=== PATIENT | male | born 1945 | race Caucasian/White ===

== ENCOUNTER 2017-02-19 09:29 | Inpatient (IN) | payer MEDICAID, MEDICARE ==
[~2017-02-19] VITALS: Ht 182.9 cm; Wt 74.3 kg
[2017-02-19] MEDS ORDERED: METO25XL PO (09:39)
[2017-02-19] MEDS ORDERED: HYDR-4061 PO (09:39)
[2017-02-19] MEDS ORDERED: HYDR25TA84 PO (09:39)
[2017-02-19] MEDS ORDERED: ASPI81 PO (09:39)
[2017-02-19] MEDS ORDERED: FURO40I PO (09:39)
[2017-02-19] MEDS ORDERED: GLIP10 PO (09:39)
[2017-02-19 09:52] LABS: GLUCOSE,POINT OF CARE 169 MG/DL (70-110)
[2017-02-19] MEDS ORDERED: ALBUTEROL SULFATE 2.5 MG/0.5 ML NEB SOLUTION NEB ONE (10:45)
[2017-02-19] MEDS ORDERED: IPRATROPIUM BROMIDE 0.5 MG/2.5 ML NEB SOLUTION NEB ONE (10:45)
[2017-02-19] MEDS ORDERED: AZITHROMYCIN 500 MG/NS 250 ML IV ONE (10:45)
[2017-02-19] MEDS ORDERED: CefTRIAXone 1 GM/DEXTROSE 50 ML IV ONE (10:45)
[2017-02-19 11:01] LABS: BASOPHILS % (AUTO) 0.4 % (0.0-2.0); EOSINOPHILS % (AUTO) 2.4 % (1.0-6.0); HEMATOCRIT 41.4 % (41-53); HEMOGLOBIN 13.9 g/dL (13.5-17.5); LYMPHOCYTES # (AUTO) 0.5 K/uL (1.0-4.8); LYMPHOCYTES % (AUTO) 15.3 % (22.0-44.0); MEAN CORPUSCULAR HEMOGLOBIN 28.4 pg (26.0-34.0); MEAN CORPUSCULAR HGB CONC 33.5 G/dL (31.0-37.0); MEAN CORPUSCULAR VOLUME 85 fL (80-100); MONOCYTES # (AUTO) 0.3 K/uL (0.1-1.0); MONOCYTES % (AUTO) 7.8 % (2.0-9.0); NEUTROPHILS # (AUTO) 2.5 K/uL (1.8-7.7); NEUTROPHILS % (AUTO) 74.1 % (40.0-70.0); PLATELET COUNT (AUTO) 210 K/uL (150-450); RED BLOOD CELL COUNT(AUTO) 4.89 MIL/uL (4.50-5.90); RED CELL DISTRIBUTION WIDTH 14.4 % (11.5-14.5); WHITE BLOOD COUNT (AUTO) 3.4 K/uL (4.5-11.0)
[2017-02-19 11:12] LABS: PROTHROMBIN TIME 10.5 SEC (9.4-11.6)
[2017-02-19 11:14] LABS: ANION GAP 8 mmol/L (8-16); CALCIUM, TOTAL 9.3 mg/dL (8.8-10.5); CARBON DIOXIDE 31 mmol/L (22-29); CHLORIDE 99 mmol/L (98-107); CREATININE 1.79 mg/dL (0.60-1.30); GLOMERULAR FILTR. RATE CALC 38 mL/min (>60); POTASSIUM 4.3 mmol/L (3.5-5.1); SODIUM SERUM 138 mmol/L (136-145); UREA NITROGEN, BLOOD 29 mg/dL (7-18)
[2017-02-19 11:19] LABS: ALANINE AMINOTRANSFERASE 18 U/L (12-78); ALBUMIN 3.4 g/dL (3.4-5.0); ASPARTATE AMINOTRANSFERASE 27 U/L (15-37); BILIRUBIN,TOTAL 0.5 mg/dL (0.1-1.0); CREATINE KINASE, TOTAL 69 U/L (39-308)
[2017-02-19 11:31] LABS: B-TYPE NATRIURETIC PEPTIDE 2730 pg/mL (0-100)
[2017-02-19] MEDS ORDERED: NITROGLYCERIN 2% (1 GM=INCH) PACKET TP ONE (11:45)
[2017-02-19] MEDS ORDERED: ASPIRIN 325 MG EC TABLET PO ONE (11:45)
[2017-02-19] MEDS ORDERED: FUROSEMIDE 20 MG/2 ML VIAL IVP ONE (11:45)
[2017-02-19] MEDS ORDERED: ACETAMINOPHEN 325 MG TABLET PO PRN ×2 (13:15→20:15)
[2017-02-19] MEDS ORDERED: 0.9% SODIUM CHLORIDE 10 ML SYRINGE IVP PRN (13:15)
[2017-02-19 14:08] LABS: APPEARANCE,URINE CLEAR (CLEAR); GLUCOSE, URINE (UA) NEGATIVE (NEGATIVE); KETONES,URINE NEGATIVE (NEGATIVE); LEUKOCYTE ESTERASE ,URINE NEGATIVE (NEGATIVE); OCCULT BLOOD,URINE NEGATIVE (NEGATIVE); PH,URINE 6.5 (5.0-8.0); PROTEIN,URINE POS 1+ (NEGATIVE)
[2017-02-19 14:12] LABS: ADD UA MICROSCOPIC NO
[2017-02-19 16:06] VITALS: BP 143/77
[2017-02-19] MEDS ORDERED: PNEUMOCOCCAL VACCINE POLYVALENT 0.5 ML VIAL [PPSV23] IM ONE (17:15)
[2017-02-19] MEDS ORDERED: INFLUENZA VIRUS VACCINE QVS 2017-18 (3YR+)/PF 60 MCG/0.5 ML SYRINGE IM ONE (17:15)
[2017-02-19 19:47] LABS: GLUCOSE,POINT OF CARE 222 MG/DL (70-110)
[2017-02-19 19:55] VITALS: BP 152/87
[2017-02-19] MEDS ORDERED: MAGNESIUM HYDROXIDE SUSPENSION 30 ML UDCUP PO PRN (20:15)
[2017-02-19] MEDS ORDERED: ZOLPIDEM TARTRATE 5 MG TABLET PO PRN (20:15)
[2017-02-19] MEDS ORDERED: BISACODYL 10 MG RECTAL RECTAL SUPPOSITORY PR PRN (20:15)
[2017-02-19] MEDS ORDERED: ONDANSETRON HCL 4 MG/2 ML VIAL IVP PRN (20:15)
[2017-02-19] MEDS: DOCUSATE SODIUM 100 MG CAPSULE PO SCH (20:56)
[2017-02-19] MEDS: METOPROLOL SUCCINATE 25 MG ER TABLET PO SCH (20:56)
[2017-02-19] MEDS: INSULIN ASPART 100 UNITS/ML SQ PRN (20:59)
[2017-02-19] MEDS: HydrALAZINE HCL 25 MG TABLET PO SCH (22:14)
[2017-02-19] MEDS: HEPARIN SODIUM,PORCINE 5,000 UNITS/ML VIAL SQ SCH (23:30)
[2017-02-19 23:38] VITALS: BP 136/84
[2017-02-20 04:46] VITALS: BP 124/60
[2017-02-20] MEDS: GlipiZIDE 10 MG TABLET PO SCH ×2 (06:13→17:50)
[2017-02-20 06:41] LABS: BASOPHILS % (AUTO) 0.3 % (0.0-2.0); HEMATOCRIT 34.7 % (41-53); HEMOGLOBIN 11.7 g/dL (13.5-17.5); LYMPHOCYTES # (AUTO) 0.6 K/uL (1.0-4.8); LYMPHOCYTES % (AUTO) 7.8 % (22.0-44.0); MEAN CORPUSCULAR HEMOGLOBIN 28.6 pg (26.0-34.0); MEAN CORPUSCULAR HGB CONC 33.6 G/dL (31.0-37.0); MEAN CORPUSCULAR VOLUME 85 fL (80-100); MONOCYTES # (AUTO) 0.5 K/uL (0.1-1.0); MONOCYTES % (AUTO) 6.4 % (2.0-9.0); NEUTROPHILS # (AUTO) 6.1 K/uL (1.8-7.7); NEUTROPHILS % (AUTO) 84.5 % (40.0-70.0); PLATELET COUNT (AUTO) 178 K/uL (150-450); RED BLOOD CELL COUNT(AUTO) 4.09 MIL/uL (4.50-5.90); RED CELL DISTRIBUTION WIDTH 14.1 % (11.5-14.5); WHITE BLOOD COUNT (AUTO) 7.2 K/uL (4.5-11.0)
[2017-02-20 07:42] LABS: ALANINE AMINOTRANSFERASE 13 U/L (12-78); ALBUMIN 2.7 g/dL (3.4-5.0); ANION GAP 8 mmol/L (8-16); ASPARTATE AMINOTRANSFERASE 21 U/L (15-37); BILIRUBIN,TOTAL 0.5 mg/dL (0.1-1.0); CALCIUM, TOTAL 8.5 mg/dL (8.8-10.5); CARBON DIOXIDE 29 mmol/L (22-29); CHLORIDE 102 mmol/L (98-107); CREATINE KINASE, TOTAL 51 U/L (39-308); GLOMERULAR FILTR. RATE CALC 40 mL/min (>60); POTASSIUM 4.4 mmol/L (3.5-5.1); SODIUM SERUM 139 mmol/L (136-145); UREA NITROGEN, BLOOD 32 mg/dL (7-18)
[2017-02-20 07:52] VITALS: BP 133/66
[2017-02-20] MEDS: ASPIRIN 81 MG CHEWABLE TABLET PO SCH (08:45)
[2017-02-20] MEDS: DOCUSATE SODIUM 100 MG CAPSULE PO SCH ×2 (08:45→20:27)
[2017-02-20] MEDS: HEPARIN SODIUM,PORCINE 5,000 UNITS/ML VIAL SQ SCH ×3 (08:45→23:35)
[2017-02-20] MEDS: FUROSEMIDE 40 MG/4 ML VIAL IVP SCH (08:45)
[2017-02-20] MEDS: PANTOPRAZOLE SODIUM 40 MG/VIAL IVP SCH (08:45)
[2017-02-20] MEDS: HydrALAZINE HCL 25 MG TABLET PO SCH ×2 (08:45→20:27)
[2017-02-20] MEDS: METOPROLOL SUCCINATE 25 MG ER TABLET PO SCH ×2 (08:46→20:27)
[2017-02-20] MEDS ORDERED: SODIUM CHLORIDE 0.9% 50 ML ONE (09:57)
[2017-02-20 10:07] LABS: GLUCOSE,POINT OF CARE 121 MG/DL (70-110)
[2017-02-20] MEDS: CefTRIAXone 1 GM/DEXTROSE 50 ML IV SCH (10:12)
[2017-02-20] MEDS: AZITHROMYCIN 500 MG/NS 250 ML IV SCH (11:11)
[2017-02-20 11:52] VITALS: BP 112/57
[2017-02-20] MEDS: INSULIN ASPART 100 UNITS/ML SQ PRN ×3 (12:14→20:30)
[2017-02-20 15:43] VITALS: BP 129/64
[2017-02-20 17:17] LABS: GLUCOSE,POINT OF CARE 89 MG/DL (70-110)
[2017-02-20 19:53] VITALS: BP 122/62
[2017-02-20 19:57] LABS: GLUCOSE,POINT OF CARE 202 MG/DL (70-110)
[2017-02-20 19:57] LABS: GLUCOSE COMMENT 1 Received Meds; GLUCOSE,POINT OF CARE 220 MG/DL (70-110)
[2017-02-20 23:11] VITALS: BP 122/63
[2017-02-21 04:32] VITALS: BP 138/68
[2017-02-21] MEDS: DEXTROSE 50%-WATER 25 GM/50 ML SYRINGE IVP PRN (06:27)
[2017-02-21] MEDS: GlipiZIDE 10 MG TABLET PO SCH (06:30)
[2017-02-21 07:11] VITALS: BP 121/59
[2017-02-21 07:23] LABS: GLUCOSE COMMENT 1 Received Meds; GLUCOSE,POINT OF CARE 214 MG/DL (70-110)
[2017-02-21 07:23] LABS: GLUCOSE COMMENT 1 Received Meds; GLUCOSE,POINT OF CARE 195 MG/DL (70-110)
[2017-02-21 07:23] LABS: GLUCOSE COMMENT 1 Doctor Notified; GLUCOSE COMMENT 2 Received Meds; GLUCOSE,POINT OF CARE 45 MG/DL (70-110)
[2017-02-21] MEDS: FUROSEMIDE 40 MG/4 ML VIAL IVP SCH (08:37)
[2017-02-21] MEDS: PANTOPRAZOLE SODIUM 40 MG/VIAL IVP SCH (08:37)
[2017-02-21] MEDS: HEPARIN SODIUM,PORCINE 5,000 UNITS/ML VIAL SQ SCH ×3 (08:37→23:39)
[2017-02-21] MEDS: METOPROLOL SUCCINATE 25 MG ER TABLET PO SCH ×2 (08:38→20:41)
[2017-02-21] MEDS: HydrALAZINE HCL 25 MG TABLET PO SCH ×2 (08:38→21:00)
[2017-02-21] MEDS: MULTIVITAMINS WITH MINERALS, THERAPEUTIC TABLET PO SCH (08:38)
[2017-02-21] MEDS: DOCUSATE SODIUM 100 MG CAPSULE PO SCH ×2 (08:38→20:41)
[2017-02-21] MEDS: ASPIRIN 81 MG CHEWABLE TABLET PO SCH (08:38)
[2017-02-21] MEDS: CefTRIAXone 1 GM/DEXTROSE 50 ML IV SCH (11:31)
[2017-02-21] MEDS ORDERED: SODIUM CHLORIDE 0.9% 50 ML ONE (11:41)
[2017-02-21] MEDS: INSULIN ASPART 100 UNITS/ML SQ PRN (11:44)
[2017-02-21 11:51] VITALS: BP 120/59
[2017-02-21] MEDS: AZITHROMYCIN 500 MG/NS 250 ML IV SCH (12:40)
[2017-02-21 15:52] VITALS: BP 126/59
[2017-02-21 16:17] LABS: GLUCOSE COMMENT 1 Received Meds; GLUCOSE,POINT OF CARE 146 MG/DL (70-110)
[2017-02-21] MEDS: FUROSEMIDE 20 MG/2 ML VIAL IVP SCH ×2 (16:41→23:39)
[2017-02-21] MEDS: GlipiZIDE 5 MG TABLET PO SCH (17:51)
[2017-02-21 19:07] VITALS: BP 111/56
[2017-02-21 22:17] LABS: GLUCOSE COMMENT 1 Received Meds; GLUCOSE,POINT OF CARE 155 MG/DL (70-110)
[2017-02-21 22:17] LABS: GLUCOSE,POINT OF CARE 110 MG/DL (70-110)
[2017-02-21 23:37] VITALS: BP 135/63
[2017-02-22 04:06] VITALS: BP 129/64
[2017-02-22] MEDS: GlipiZIDE 5 MG TABLET PO SCH ×2 (06:30→18:03)
[2017-02-22 06:48] LABS: GLUCOSE,POINT OF CARE 83 MG/DL (70-110)
[2017-02-22 07:06] VITALS: BP 143/64
[2017-02-22] MEDS: HEPARIN SODIUM,PORCINE 5,000 UNITS/ML VIAL SQ SCH ×3 (08:00→16:00)
[2017-02-22] MEDS: PANTOPRAZOLE SODIUM 40 MG/VIAL IVP SCH (08:12)
[2017-02-22] MEDS: FUROSEMIDE 20 MG/2 ML VIAL IVP SCH (08:12)
[2017-02-22] MEDS: METOPROLOL SUCCINATE 25 MG ER TABLET PO SCH ×2 (08:12→20:13)
[2017-02-22] MEDS: HydrALAZINE HCL 25 MG TABLET PO SCH ×2 (08:12→20:13)
[2017-02-22 08:16] LABS: BASOPHILS % (AUTO) 0.1 % (0.0-2.0); EOSINOPHILS % (AUTO) 3.5 % (1.0-6.0); HEMOGLOBIN 11.1 g/dL (13.5-17.5); LYMPHOCYTES # (AUTO) 0.4 K/uL (1.0-4.8); LYMPHOCYTES % (AUTO) 10.3 % (22.0-44.0); MEAN CORPUSCULAR HEMOGLOBIN 28.7 pg (26.0-34.0); MEAN CORPUSCULAR HGB CONC 33.7 G/dL (31.0-37.0); MEAN CORPUSCULAR VOLUME 85 fL (80-100); MONOCYTES # (AUTO) 0.4 K/uL (0.1-1.0); MONOCYTES % (AUTO) 8.2 % (2.0-9.0); NEUTROPHILS # (AUTO) 3.3 K/uL (1.8-7.7); NEUTROPHILS % (AUTO) 77.9 % (40.0-70.0); PLATELET COUNT (AUTO) 179 K/uL (150-450); RED BLOOD CELL COUNT(AUTO) 3.87 MIL/uL (4.50-5.90); RED CELL DISTRIBUTION WIDTH 14.5 % (11.5-14.5); WHITE BLOOD COUNT (AUTO) 4.3 K/uL (4.5-11.0)
[2017-02-22] MEDS: MULTIVITAMINS WITH MINERALS, THERAPEUTIC TABLET PO SCH (08:31)
[2017-02-22] MEDS: ASPIRIN 81 MG CHEWABLE TABLET PO SCH (08:31)
[2017-02-22] MEDS: DOCUSATE SODIUM 100 MG CAPSULE PO SCH ×2 (08:31→20:13)
[2017-02-22 08:42] LABS: CALCIUM, TOTAL 8.5 mg/dL (8.8-10.5); CREATININE 2.06 mg/dL (0.60-1.30); POTASSIUM 4.5 mmol/L (3.5-5.1)
[2017-02-22 10:44] VITALS: BP 117/57
[2017-02-22] MEDS: CefTRIAXone 1 GM/DEXTROSE 50 ML IV SCH (10:55)
[2017-02-22] MEDS: AZITHROMYCIN 500 MG/NS 250 ML IV SCH (10:55)
[2017-02-22] MEDS ORDERED: ACETYLCYSTEINE 10% 100 MG/ML 30 ML ORAL SOLUTION PO ONE (11:00)
[2017-02-22] MEDS ORDERED: SODIUM CHLORIDE 0.9% 1,000 ML IV ONE (11:00)
[2017-02-22 12:17] LABS: GLUCOSE COMMENT 1 Received Meds; GLUCOSE,POINT OF CARE 221 MG/DL (70-110)
[2017-02-22 14:30] LABS: APPEARANCE,URINE CLEAR (CLEAR); GLUCOSE, URINE (UA) NEGATIVE (NEGATIVE); KETONES,URINE NEGATIVE (NEGATIVE); LEUKOCYTE ESTERASE ,URINE NEGATIVE (NEGATIVE); OCCULT BLOOD,URINE NEGATIVE (NEGATIVE); PH,URINE 5.5 (5.0-8.0); PROTEIN,URINE NEGATIVE (NEGATIVE)
[2017-02-22 14:36] LABS: ADD UA MICROSCOPIC NO
[2017-02-22 14:53] VITALS: BP 132/66
[2017-02-22] MEDS: INSULIN ASPART 100 UNITS/ML SQ PRN ×2 (18:06→20:14)
[2017-02-22 19:12] VITALS: BP 142/67
[2017-02-22 19:57] LABS: GLUCOSE COMMENT 1 Received Meds; GLUCOSE,POINT OF CARE 178 MG/DL (70-110)
[2017-02-22 23:59] VITALS: BP 130/65
[2017-02-23] VITALS (15 sets, daily range): BP systolic 111–167; BP diastolic 48–76
[2017-02-23 00:57] LABS: GLUCOSE COMMENT 1 Received Meds; GLUCOSE,POINT OF CARE 216 MG/DL (70-110)
[2017-02-23] MEDS: INSULIN ASPART 100 UNITS/ML SQ PRN ×4 (05:53→20:53)
[2017-02-23] MEDS: GlipiZIDE 5 MG TABLET PO SCH ×2 (05:56→17:35)
[2017-02-23] MEDS: HEPARIN SODIUM,PORCINE 5,000 UNITS/ML VIAL SQ SCH ×4 (07:40→23:58)
[2017-02-23] MEDS: METOPROLOL SUCCINATE 25 MG ER TABLET PO SCH ×2 (07:50→20:49)
[2017-02-23] MEDS: ASPIRIN 81 MG CHEWABLE TABLET PO SCH (07:50)
[2017-02-23] MEDS: HydrALAZINE HCL 25 MG TABLET PO SCH ×2 (07:50→20:49)
[2017-02-23] MEDS: PANTOPRAZOLE SODIUM 40 MG/VIAL IVP SCH (07:51)
[2017-02-23] MEDS: DOCUSATE SODIUM 100 MG CAPSULE PO SCH ×2 (07:56→20:49)
[2017-02-23] MEDS: MULTIVITAMINS WITH MINERALS, THERAPEUTIC TABLET PO SCH (07:56)
[2017-02-23 08:30] LABS: CALCIUM, TOTAL 8.4 mg/dL (8.8-10.5); CREATININE 1.98 mg/dL (0.60-1.30); POTASSIUM 4.9 mmol/L (3.5-5.1)
[2017-02-23] MEDS: CefTRIAXone 1 GM/DEXTROSE 50 ML IV SCH (10:14)
[2017-02-23] MEDS ORDERED: ACETYLCYSTEINE 10% 100 MG/ML 30 ML ORAL SOLUTION PO ONE (10:30)
[2017-02-23] MEDS: AZITHROMYCIN 500 MG/NS 250 ML IV SCH (10:38)
[2017-02-23] MEDS: SODIUM CHLORIDE 0.9% 1,000 ML IV SCH ×2 (11:04→23:57)
[2017-02-23 12:03] LABS: GLUCOSE COMMENT 1 Received Meds; GLUCOSE,POINT OF CARE 205 MG/DL (70-110)
[2017-02-23] MEDS ORDERED: IOHEXOL 300 MG/ML 150 ML VIAL ONE (12:35)
[2017-02-23] MEDS ORDERED: SODIUM BICARBONATE 50 MEQ/50 ML VIAL ONE (12:35)
[2017-02-23] MEDS ORDERED: LIDOCAINE HCL/PF 1% 30 ML VIAL ONE (12:35)
[2017-02-23] MEDS ORDERED: HEPARIN SODIUM 1000 UNITS/NS 1,000 ML ONE (12:35)
[2017-02-23] MEDS ORDERED: VERAPAMIL HCL 2.5 MG/ML 2 ML VIAL ONE (13:31)
[2017-02-23] MEDS ORDERED: NITROGLYCERIN 50 MG/D5% WATER 250 ML ONE (13:32)
[2017-02-23] MEDS ORDERED: MIDAZOLAM HCL 2 MG/2 ML VIAL ONE (13:35)
[2017-02-23] MEDS ORDERED: FentaNYL CITRATE-PF 100 MCG/2 ML VIAL ONE (13:35)
[2017-02-23] MEDS ORDERED: SODIUM CHLORIDE 0.9% 500 ML IV ONE (13:39)
[2017-02-23] MEDS ORDERED: HEPARIN SODIUM 1000 UNITS/NS 1,000 ML IARTER ONE (13:39)
[2017-02-23] MEDS ORDERED: IOHEXOL 300 MG/ML 150 ML VIAL IARTER ONE (13:45)
[2017-02-23] MEDS ORDERED: FentaNYL CITRATE-PF 100 MCG/2 ML VIAL IVP ONE (13:45)
[2017-02-23] MEDS ORDERED: MIDAZOLAM HCL 2 MG/2 ML VIAL IVP ONE (13:45)
[2017-02-23] MEDS ORDERED: LIDOCAINE 1% 30 ML/SOD BICARB 8.4% 4 ML SQ ONE (13:45)
[2017-02-23] MEDS ORDERED: HEPARIN SODIUM,PORCINE 1,000 UNITS/ML 10 ML VIAL ONE (13:46)
[2017-02-23 17:32] LABS: GLUCOSE COMMENT 1 Received Meds; GLUCOSE,POINT OF CARE 234 MG/DL (70-110)
[2017-02-24 00:05] VITALS: BP 147/76
[2017-02-24 05:34] VITALS: BP 144/73
[2017-02-24 05:37] LABS: GLUCOSE COMMENT 1 Received Meds; GLUCOSE,POINT OF CARE 207 MG/DL (70-110)
[2017-02-24] MEDS: GlipiZIDE 5 MG TABLET PO SCH ×2 (06:30→18:04)
[2017-02-24 06:58] VITALS: BP 141/62
[2017-02-24 07:03] LABS: CALCIUM, TOTAL 8.5 mg/dL (8.8-10.5); CREATININE 1.63 mg/dL (0.60-1.30); POTASSIUM 4.6 mmol/L (3.5-5.1)
[2017-02-24] MEDS: METOPROLOL SUCCINATE 25 MG ER TABLET PO SCH ×2 (08:30→20:37)
[2017-02-24] MEDS: HYDROCODONE/ACETAMINOPHEN 5-325 MG TABLET PO PRN (08:31)
[2017-02-24] MEDS: DOCUSATE SODIUM 100 MG CAPSULE PO SCH ×2 (08:31→20:38)
[2017-02-24] MEDS: MULTIVITAMINS WITH MINERALS, THERAPEUTIC TABLET PO SCH (08:31)
[2017-02-24] MEDS: HEPARIN SODIUM,PORCINE 5,000 UNITS/ML VIAL SQ SCH ×2 (08:31→16:00)
[2017-02-24] MEDS: PANTOPRAZOLE SODIUM 40 MG/VIAL IVP SCH (08:31)
[2017-02-24] MEDS: ASPIRIN 81 MG CHEWABLE TABLET PO SCH (08:31)
[2017-02-24] MEDS: HydrALAZINE HCL 25 MG TABLET PO SCH ×2 (08:31→20:39)
[2017-02-24 11:18] VITALS: BP 111/55
[2017-02-24 11:48] LABS: GLUCOSE,POINT OF CARE 157 MG/DL (70-110)
[2017-02-24] MEDS: CefTRIAXone 1 GM/DEXTROSE 50 ML IV SCH (11:51)
[2017-02-24 11:53] LABS: GLUCOSE,POINT OF CARE 136 MG/DL (70-110)
[2017-02-24] MEDS: AZITHROMYCIN 500 MG/NS 250 ML IV SCH (12:47)
[2017-02-24] MEDS: SODIUM CHLORIDE 0.9% 1,000 ML IV SCH (15:18)
[2017-02-24 15:34] VITALS: BP 135/67
[2017-02-24 18:18] LABS: GLUCOSE,POINT OF CARE 114 MG/DL (70-110)
[2017-02-24 18:18] LABS: GLUCOSE,POINT OF CARE 73 MG/DL (70-110)
[2017-02-24 19:44] VITALS: BP 142/64
[2017-02-24] MEDS ORDERED: ACETYLCYSTEINE 10% 100 MG/ML 30 ML ORAL SOLUTION PO ONE (20:00)
[2017-02-24] MEDS: INSULIN ASPART 100 UNITS/ML SQ PRN (20:46)
[2017-02-25] VITALS (15 sets, daily range): BP systolic 130–179; BP diastolic 57–89
[2017-02-25] MEDS: HEPARIN SODIUM,PORCINE 5,000 UNITS/ML VIAL SQ SCH ×4 (00:46→23:47)
[2017-02-25] MEDS: HYDROCODONE/ACETAMINOPHEN 5-325 MG TABLET PO PRN (03:00)
[2017-02-25] MEDS: GuaiFENesin/D-METHORPHAN [SUGAR-FREE] 200-20MG/10 ML SYRUP UDCUP PO PRN ×2 (03:00→23:47)
[2017-02-25] MEDS: GlipiZIDE 5 MG TABLET PO SCH ×2 (05:11→17:05)
[2017-02-25] MEDS ORDERED: ACETYLCYSTEINE 10% 100 MG/ML 30 ML ORAL SOLUTION PO ONE (06:00)
[2017-02-25] MEDS: SODIUM CHLORIDE 0.9% 1,000 ML IV SCH (06:59)
[2017-02-25] MEDS ORDERED: LIDOCAINE HCL/PF 1% 30 ML VIAL ONE (08:56)
[2017-02-25] MEDS ORDERED: IOHEXOL 300 MG/ML 150 ML VIAL ONE (08:57)
[2017-02-25] MEDS ORDERED: HEPARIN SODIUM 1000 UNITS/NS 1,000 ML ONE (08:57)
[2017-02-25] MEDS ORDERED: SODIUM BICARBONATE 50 MEQ/50 ML VIAL ONE (08:57)
[2017-02-25] MEDS: ASPIRIN 81 MG CHEWABLE TABLET PO SCH (09:00)
[2017-02-25] MEDS: MULTIVITAMINS WITH MINERALS, THERAPEUTIC TABLET PO SCH (09:00)
[2017-02-25] MEDS: HydrALAZINE HCL 25 MG TABLET PO SCH ×2 (09:00→20:25)
[2017-02-25] MEDS: PANTOPRAZOLE SODIUM 40 MG/VIAL IVP SCH (09:00)
[2017-02-25] MEDS: DOCUSATE SODIUM 100 MG CAPSULE PO SCH ×2 (09:00→20:25)
[2017-02-25] MEDS: METOPROLOL SUCCINATE 25 MG ER TABLET PO SCH ×2 (09:00→20:25)
[2017-02-25] MEDS ORDERED: VERAPAMIL HCL 2.5 MG/ML 2 ML VIAL ONE (09:23)
[2017-02-25] MEDS ORDERED: NITROGLYCERIN 50 MG/D5% WATER 250 ML ONE (09:23)
[2017-02-25] MEDS ORDERED: MIDAZOLAM HCL 2 MG/2 ML VIAL ONE (10:02)
[2017-02-25] MEDS ORDERED: FentaNYL CITRATE-PF 100 MCG/2 ML VIAL ONE (10:02)
[2017-02-25] MEDS ORDERED: SODIUM CHLORIDE 0.9% 500 ML IV ONE (10:19)
[2017-02-25] MEDS ORDERED: HEPARIN SODIUM 1000 UNITS/NS 1,000 ML IARTER ONE (10:19)
[2017-02-25 10:22] LABS: ALBUMIN/GLOBULIN RAITO (PEP) 0.8 (0.7-1.7); ALPHA-1 GLOBULINS(PEP) 0.2 g/dL (0.0-0.4); ALPHA-2 GLOBULINS (PEP) 0.8 g/dL (0.4-1.0); BETA (PEP) 0.9 g/dL (0.7-1.3); GAMMA GLOBULINS (PEP) 1.5 g/dL (0.4-1.8); GLOBULIN TOTAL (PEP) 3.5 g/dL (2.2-3.9); M-SPIKE (PEP) Not Observed g/dL (Not Observed); TOTAL PROTEIN 6.3 g/dL (6.0-8.5)
[2017-02-25 10:22] LABS: BETA URINE(ELP) 23.7 %; GAMMA URINE(ELP) 23.7 %; TOTAL PROTEIN URINE 15.3 mg/dL (Not Estab.)
[2017-02-25] MEDS ORDERED: LIDOCAINE 1% 30 ML/SOD BICARB 8.4% 4 ML SQ ONE (10:30)
[2017-02-25] MEDS ORDERED: MIDAZOLAM HCL 2 MG/2 ML VIAL IVP ONE (10:30)
[2017-02-25] MEDS ORDERED: FentaNYL CITRATE-PF 100 MCG/2 ML VIAL IVP ONE (10:30)
[2017-02-25] MEDS ORDERED: IOHEXOL 300 MG/ML 150 ML VIAL IARTER ONE (10:30)
[2017-02-25] MEDS ORDERED: HEPARIN SODIUM,PORCINE 5,000 UNITS/ML VIAL IVP ONE (10:30)
[2017-02-25] MEDS ORDERED: IOHEXOL 300 MG/ML 50 ML VIAL ONE (10:34)
[2017-02-25] MEDS ORDERED: TICAGRELOR 90 MG TABLET ONE (10:43)
[2017-02-25] MEDS ORDERED: NITROGLYCERIN/D5W 50 MG/250 ML IV BOTTLE ICOR ONE (11:00)
[2017-02-25] MEDS ORDERED: TICAGRELOR 90 MG TABLET PO ONE (11:00)
[2017-02-25] MEDS ORDERED: VERAPAMIL HCL 2.5 MG/ML 2 ML VIAL ICOR ONE (11:00)
[2017-02-25] MEDS: CefTRIAXone 1 GM/DEXTROSE 50 ML IV SCH (12:29)
[2017-02-25] MEDS: AZITHROMYCIN 500 MG/NS 250 ML IV SCH (12:30)
[2017-02-25] MEDS: MORPHINE SULFATE 2 MG/ML SYRINGE IVP PRN ×3 (13:15→23:47)
[2017-02-25] MEDS: INSULIN ASPART 100 UNITS/ML SQ PRN (16:51)
[2017-02-25 17:18] LABS: EOSINOPHILS % (AUTO) 1.5 % (1.0-6.0); HEMATOCRIT 34.5 % (41-53); HEMOGLOBIN 11.6 g/dL (13.5-17.5); LYMPHOCYTES # (AUTO) 0.4 K/uL (1.0-4.8); LYMPHOCYTES % (AUTO) 6.7 % (22.0-44.0); MEAN CORPUSCULAR HEMOGLOBIN 28.6 pg (26.0-34.0); MEAN CORPUSCULAR HGB CONC 33.6 G/dL (31.0-37.0); MEAN CORPUSCULAR VOLUME 85 fL (80-100); MONOCYTES # (AUTO) 0.4 K/uL (0.1-1.0); MONOCYTES % (AUTO) 7.1 % (2.0-9.0); NEUTROPHILS # (AUTO) 5.3 K/uL (1.8-7.7); NEUTROPHILS % (AUTO) 84.7 % (40.0-70.0); PLATELET COUNT (AUTO) 207 K/uL (150-450); RED BLOOD CELL COUNT(AUTO) 4.06 MIL/uL (4.50-5.90); RED CELL DISTRIBUTION WIDTH 13.8 % (11.5-14.5); WHITE BLOOD COUNT (AUTO) 6.3 K/uL (4.5-11.0)
[2017-02-25 17:32] LABS: CALCIUM, TOTAL 8.8 mg/dL (8.8-10.5); CREATININE 1.53 mg/dL (0.60-1.30); POTASSIUM 5.3 mmol/L (3.5-5.1)
[2017-02-25 17:38] LABS: ALBUMIN 2.7 g/dL (3.4-5.0); BILIRUBIN,TOTAL 0.3 mg/dL (0.1-1.0); TOTAL PROTEIN, SERUM 7.5 g/dL (6.4-8.2)
[2017-02-25 19:07] LABS: GLUCOSE,POINT OF CARE 176 MG/DL (70-110)
[2017-02-25 19:07] LABS: GLUCOSE,POINT OF CARE 141 MG/DL (70-110)
[2017-02-25] MEDS: CARVEDILOL 12.5 MG TABLET PO SCH (20:25)
[2017-02-25] MEDS: BENZONATATE 100 MG CAPSULE PO SCH (20:25)
[2017-02-25] MEDS: TICAGRELOR 90 MG TABLET PO SCH (21:24)
[2017-02-26] VITALS (8 sets, daily range): BP systolic 109–186; BP diastolic 66–113
[2017-02-26] MEDS: HYDROCODONE/ACETAMINOPHEN 5-325 MG TABLET PO PRN (01:04)
[2017-02-26] MEDS: ALBUTEROL SULFATE 2.5 MG/0.5 ML NEB SOLUTION NEB PRN ×2 (01:29→06:47)
[2017-02-26] MEDS: IPRATROPIUM BROMIDE 0.5 MG/2.5 ML NEB SOLUTION NEB PRN ×2 (01:29→06:47)
[2017-02-26] MEDS ORDERED: FUROSEMIDE 20 MG/2 ML VIAL IVP ONE ×2 (01:30→10:45)
[2017-02-26] MEDS ORDERED: SODIUM CHLORIDE 0.9% 100 ML ONE (02:17)
[2017-02-26 05:29] LABS: ALBUMIN 2.8 g/dL (3.4-5.0); BILIRUBIN,TOTAL 0.2 mg/dL (0.1-1.0); CALCIUM, TOTAL 8.6 mg/dL (8.8-10.5); CREATININE 1.66 mg/dL (0.60-1.30); POTASSIUM 5.4 mmol/L (3.5-5.1); TOTAL PROTEIN, SERUM 7.3 g/dL (6.4-8.2)
[2017-02-26 06:06] LABS: BASOPHILS % (AUTO) 0.3 % (0.0-2.0); EOSINOPHILS % (AUTO) 1.4 % (1.0-6.0); HEMATOCRIT 31.6 % (41-53); HEMOGLOBIN 10.6 g/dL (13.5-17.5); LYMPHOCYTES # (AUTO) 0.4 K/uL (1.0-4.8); LYMPHOCYTES % (AUTO) 6.1 % (22.0-44.0); MEAN CORPUSCULAR HEMOGLOBIN 28.9 pg (26.0-34.0); MEAN CORPUSCULAR HGB CONC 33.6 G/dL (31.0-37.0); MEAN CORPUSCULAR VOLUME 86 fL (80-100); MONOCYTES # (AUTO) 0.7 K/uL (0.1-1.0); MONOCYTES % (AUTO) 9.2 % (2.0-9.0); PLATELET COUNT (AUTO) 222 K/uL (150-450); RED BLOOD CELL COUNT(AUTO) 3.69 MIL/uL (4.50-5.90); WHITE BLOOD COUNT (AUTO) 7.2 K/uL (4.5-11.0)
[2017-02-26] MEDS: GlipiZIDE 5 MG TABLET PO SCH ×2 (06:14→16:36)
[2017-02-26] MEDS: GuaiFENesin/D-METHORPHAN [SUGAR-FREE] 200-20MG/10 ML SYRUP UDCUP PO PRN ×2 (06:15→10:53)
[2017-02-26 06:48] LABS: GLUCOSE,POINT OF CARE 87 MG/DL (70-110)
[2017-02-26 06:48] LABS: GLUCOSE,POINT OF CARE 128 MG/DL (70-110)
[2017-02-26] MEDS: HEPARIN SODIUM,PORCINE 5,000 UNITS/ML VIAL SQ SCH ×2 (08:41→16:36)
[2017-02-26] MEDS: BENZONATATE 100 MG CAPSULE PO SCH ×3 (08:42→20:32)
[2017-02-26] MEDS: CARVEDILOL 12.5 MG TABLET PO SCH ×2 (08:42→20:32)
[2017-02-26] MEDS: PANTOPRAZOLE SODIUM 40 MG/VIAL IVP SCH (08:42)
[2017-02-26] MEDS: FUROSEMIDE 20 MG/2 ML VIAL IVP SCH ×3 (08:42→20:31)
[2017-02-26] MEDS: DOCUSATE SODIUM 100 MG CAPSULE PO SCH ×2 (08:43→20:32)
[2017-02-26] MEDS: TICAGRELOR 90 MG TABLET PO SCH ×2 (08:43→20:34)
[2017-02-26] MEDS: ASPIRIN 81 MG CHEWABLE TABLET PO SCH (08:43)
[2017-02-26] MEDS: HydrALAZINE HCL 25 MG TABLET PO SCH ×2 (08:43→20:32)
[2017-02-26] MEDS: METOPROLOL SUCCINATE 25 MG ER TABLET PO SCH ×2 (08:43→20:32)
[2017-02-26] MEDS: MULTIVITAMINS WITH MINERALS, THERAPEUTIC TABLET PO SCH (08:43)
[2017-02-26] MEDS ORDERED: SODIUM POLYSTYRENE SULFONATE 15 GM/60 ML SUSPENSION BOTTLE PO ONE (09:15)
[2017-02-26] MEDS: CefTRIAXone 1 GM/DEXTROSE 50 ML IV SCH (10:21)
[2017-02-26] MEDS: AZITHROMYCIN 500 MG/NS 250 ML IV SCH (10:53)
[2017-02-26] MEDS: INSULIN ASPART 100 UNITS/ML SQ PRN (16:39)
[2017-02-27] VITALS: BP 138/82
[2017-02-27 04:00] VITALS: BP 138/82
[2017-02-27 04:27] LABS: GLUCOSE,POINT OF CARE 136 MG/DL (70-110)
[2017-02-27 05:00] LABS: BASOPHILS % (AUTO) 0.3 % (0.0-2.0); EOSINOPHILS % (AUTO) 1.4 % (1.0-6.0); HEMATOCRIT 29.5 % (41-53); HEMOGLOBIN 9.9 g/dL (13.5-17.5); LYMPHOCYTES # (AUTO) 0.4 K/uL (1.0-4.8); LYMPHOCYTES % (AUTO) 5.9 % (22.0-44.0); MEAN CORPUSCULAR HEMOGLOBIN 28.7 pg (26.0-34.0); MEAN CORPUSCULAR HGB CONC 33.7 G/dL (31.0-37.0); MEAN CORPUSCULAR VOLUME 85 fL (80-100); MONOCYTES # (AUTO) 0.6 K/uL (0.1-1.0); MONOCYTES % (AUTO) 9.9 % (2.0-9.0); NEUTROPHILS # (AUTO) 5.1 K/uL (1.8-7.7); NEUTROPHILS % (AUTO) 82.5 % (40.0-70.0); PLATELET COUNT (AUTO) 203 K/uL (150-450); RED BLOOD CELL COUNT(AUTO) 3.47 MIL/uL (4.50-5.90); RED CELL DISTRIBUTION WIDTH 14.3 % (11.5-14.5); WHITE BLOOD COUNT (AUTO) 6.2 K/uL (4.5-11.0)
[2017-02-27 05:19] LABS: ALANINE AMINOTRANSFERASE 20 U/L (12-78); ALBUMIN 2.7 g/dL (3.4-5.0); ANION GAP 5 mmol/L (8-16); ASPARTATE AMINOTRANSFERASE 31 U/L (15-37); BILIRUBIN,TOTAL 0.2 mg/dL (0.1-1.0); CALCIUM, TOTAL 8.5 mg/dL (8.8-10.5); CARBON DIOXIDE 29 mmol/L (22-29); CHLORIDE 99 mmol/L (98-107); CREATININE 2.35 mg/dL (0.60-1.30); GLOMERULAR FILTR. RATE CALC 28 mL/min (>60); POTASSIUM 5.8 mmol/L (3.5-5.1); SODIUM SERUM 133 mmol/L (136-145); TOTAL PROTEIN, SERUM 7.2 g/dL (6.4-8.2); UREA NITROGEN, BLOOD 42 mg/dL (7-18)
[2017-02-27 05:47] LABS: B-TYPE NATRIURETIC PEPTIDE > 5000 pg/mL (0-100)
[2017-02-27] MEDS: INSULIN ASPART 100 UNITS/ML SQ PRN ×2 (06:20→21:22)
[2017-02-27] MEDS: GlipiZIDE 5 MG TABLET PO SCH ×2 (06:39→18:54)
[2017-02-27 06:53] LABS: GLUCOSE,POINT OF CARE 162 MG/DL (70-110)
[2017-02-27] MEDS: HEPARIN SODIUM,PORCINE 5,000 UNITS/ML VIAL SQ SCH ×3 (08:42→21:00)
[2017-02-27] MEDS: PANTOPRAZOLE SODIUM 40 MG/VIAL IVP SCH (08:42)
[2017-02-27] MEDS: MULTIVITAMINS WITH MINERALS, THERAPEUTIC TABLET PO SCH (08:43)
[2017-02-27] MEDS: BENZONATATE 100 MG CAPSULE PO SCH ×3 (08:43→20:57)
[2017-02-27] MEDS: TICAGRELOR 90 MG TABLET PO SCH ×2 (08:44→20:59)
[2017-02-27] MEDS: METOPROLOL SUCCINATE 25 MG ER TABLET PO SCH ×2 (08:44→20:57)
[2017-02-27] MEDS: HydrALAZINE HCL 25 MG TABLET PO SCH ×2 (08:45→20:57)
[2017-02-27] MEDS: DOCUSATE SODIUM 100 MG CAPSULE PO SCH ×2 (08:45→20:57)
[2017-02-27] MEDS: ASPIRIN 81 MG CHEWABLE TABLET PO SCH (08:45)
[2017-02-27] MEDS: CARVEDILOL 12.5 MG TABLET PO SCH ×2 (08:46→20:57)
[2017-02-27] MEDS ORDERED: SODIUM POLYSTYRENE SULFONATE 15 GM/60 ML SUSPENSION BOTTLE PO ONE ×2 (09:00→11:45)
[2017-02-27] MEDS ORDERED: FUROSEMIDE 40 MG/4 ML VIAL IVP SCH (09:00)
[2017-02-27 10:46] VITALS: BP 135/72
[2017-02-27] MEDS: ATORVASTATIN CALCIUM 40 MG TABLET PO SCH (12:14)
[2017-02-27] MEDS: CefTRIAXone 1 GM/DEXTROSE 50 ML IV SCH (12:15)
[2017-02-27] MEDS: AZITHROMYCIN 500 MG/NS 250 ML IV SCH (12:15)
[2017-02-27] MEDS ORDERED: SODIUM CHLORIDE 0.9% 100 ML ONE (12:22)
[2017-02-27] MEDS: IPRATROPIUM BROMIDE 0.5 MG/2.5 ML NEB SOLUTION NEB SCH ×3 (15:00→23:01)
[2017-02-27] MEDS: ALBUTEROL SULFATE 2.5 MG/0.5 ML NEB SOLUTION NEB SCH ×3 (15:00→23:01)
[2017-02-27 16:01] VITALS: BP 144/69
[2017-02-27 16:55] LABS: CALCIUM, TOTAL 8.4 mg/dL (8.8-10.5); CREATININE 2.76 mg/dL (0.60-1.30); MAGNESIUM 2.6 mg/dL (1.80-2.40); PHOSPHORUS 3.6 mg/dL (2.5-4.9)
[2017-02-27 17:04] LABS: POTASSIUM 5.9 mmol/L (3.5-5.1)
[2017-02-27 18:03] LABS: GLUCOSE COMMENT 1 Received Meds; GLUCOSE,POINT OF CARE 149 MG/DL (70-110)
[2017-02-27 18:03] LABS: GLUCOSE,POINT OF CARE 118 MG/DL (70-110)
[2017-02-27 18:03] LABS: GLUCOSE,POINT OF CARE 201 MG/DL (70-110)
[2017-02-27 18:07] LABS: APPEARANCE,URINE TURBID (CLEAR); GLUCOSE, URINE (UA) NEGATIVE (NEGATIVE); KETONES,URINE NEGATIVE (NEGATIVE); LEUKOCYTE ESTERASE ,URINE SMALL (NEGATIVE); OCCULT BLOOD,URINE LARGE (NEGATIVE); PH,URINE 5.5 (5.0-8.0); PROTEIN,URINE SEE CONFIRM (NEGATIVE)
[2017-02-27 18:19] LABS: RBC,URINE 51-100 /HPF (0-2); SQUAMOUS EPITHELIAL CELL,UR Few /LPF (None Seen); SULFOSALICYLIC ACID,URINE 3+ (Negative)
[2017-02-27] MEDS: GuaiFENesin/D-METHORPHAN [SUGAR-FREE] 200-20MG/10 ML SYRUP UDCUP PO PRN (18:58)
[2017-02-27 19:02] LABS: GLUCOSE,POINT OF CARE 149 MG/DL (70-110)
[2017-02-27 19:02] LABS: GLUCOSE,POINT OF CARE 127 MG/DL (70-110)
[2017-02-27 19:59] VITALS: BP 141/76
[2017-02-27 23:50] VITALS: BP 140/59
[2017-02-28] MEDS: ALBUTEROL SULFATE 2.5 MG/0.5 ML NEB SOLUTION NEB SCH ×6 (03:00→23:09)
[2017-02-28] MEDS: IPRATROPIUM BROMIDE 0.5 MG/2.5 ML NEB SOLUTION NEB SCH ×6 (03:00→23:08)
[2017-02-28 05:06] VITALS: BP 138/69
[2017-02-28 06:12] LABS: EOSINOPHILS % (AUTO) 1.3 % (1.0-6.0); HEMOGLOBIN 9.5 g/dL (13.5-17.5); LYMPHOCYTES # (AUTO) 0.3 K/uL (1.0-4.8); LYMPHOCYTES % (AUTO) 5.6 % (22.0-44.0); MEAN CORPUSCULAR HEMOGLOBIN 28.7 pg (26.0-34.0); MEAN CORPUSCULAR HGB CONC 33.9 G/dL (31.0-37.0); MEAN CORPUSCULAR VOLUME 85 fL (80-100); MONOCYTES # (AUTO) 0.6 K/uL (0.1-1.0); MONOCYTES % (AUTO) 9.8 % (2.0-9.0); NEUTROPHILS # (AUTO) 4.9 K/uL (1.8-7.7); NEUTROPHILS % (AUTO) 83.3 % (40.0-70.0); PLATELET COUNT (AUTO) 219 K/uL (150-450); RED BLOOD CELL COUNT(AUTO) 3.31 MIL/uL (4.50-5.90); RED CELL DISTRIBUTION WIDTH 14.4 % (11.5-14.5); WHITE BLOOD COUNT (AUTO) 5.9 K/uL (4.5-11.0)
[2017-02-28 07:20] LABS: ALBUMIN 2.6 g/dL (3.4-5.0); BILIRUBIN,TOTAL 0.2 mg/dL (0.1-1.0); CALCIUM, TOTAL 8.3 mg/dL (8.8-10.5); CREATININE 2.98 mg/dL (0.60-1.30); MAGNESIUM 2.6 mg/dL (1.80-2.40); PHOSPHORUS 3.8 mg/dL (2.5-4.9); POTASSIUM 4.4 mmol/L (3.5-5.1); TOTAL PROTEIN, SERUM 6.8 g/dL (6.4-8.2)
[2017-02-28 07:23] VITALS: BP 130/66
[2017-02-28] MEDS: DEXTROSE 50%-WATER 25 GM/50 ML SYRINGE IVP PRN (07:29)
[2017-02-28] MEDS: HEPARIN SODIUM,PORCINE 5,000 UNITS/ML VIAL SQ SCH ×2 (09:00→19:55)
[2017-02-28] MEDS: DOCUSATE SODIUM 100 MG CAPSULE PO SCH ×2 (09:00→19:54)
[2017-02-28] MEDS: FUROSEMIDE 40 MG/4 ML VIAL IVP SCH (10:06)
[2017-02-28] MEDS: PANTOPRAZOLE SODIUM 40 MG/VIAL IVP SCH (10:06)
[2017-02-28] MEDS: BENZONATATE 100 MG CAPSULE PO SCH ×3 (10:06→19:55)
[2017-02-28] MEDS: CARVEDILOL 12.5 MG TABLET PO SCH ×2 (10:07→19:55)
[2017-02-28] MEDS: ASPIRIN 81 MG CHEWABLE TABLET PO SCH (10:07)
[2017-02-28] MEDS: METOPROLOL SUCCINATE 25 MG ER TABLET PO SCH ×2 (10:07→19:55)
[2017-02-28] MEDS: ATORVASTATIN CALCIUM 40 MG TABLET PO SCH (10:07)
[2017-02-28] MEDS: GlipiZIDE 5 MG TABLET PO SCH ×2 (10:08→17:50)
[2017-02-28] MEDS: MULTIVITAMINS WITH MINERALS, THERAPEUTIC TABLET PO SCH (10:08)
[2017-02-28] MEDS: TICAGRELOR 90 MG TABLET PO SCH ×2 (10:09→19:54)
[2017-02-28] MEDS: HydrALAZINE HCL 25 MG TABLET PO SCH ×2 (10:09→19:54)
[2017-02-28] MEDS ORDERED: ALBUTEROL SULFATE 2.5 MG/0.5 ML NEB SOLUTION NEB SCH (11:00)
[2017-02-28] MEDS ORDERED: IPRATROPIUM BROMIDE 0.5 MG/2.5 ML NEB SOLUTION NEB SCH (11:00)
[2017-02-28 11:22] LABS: GLUCOSE COMMENT 1 Juice/Food/D50 Given; GLUCOSE,POINT OF CARE 59 MG/DL (70-110)
[2017-02-28 11:22] LABS: GLUCOSE COMMENT 1 Received Meds; GLUCOSE,POINT OF CARE 183 MG/DL (70-110)
[2017-02-28 11:35] VITALS: BP 149/76
[2017-02-28] MEDS: INSULIN ASPART 100 UNITS/ML SQ PRN (12:09)
[2017-02-28] MEDS: CefTRIAXone 1 GM/DEXTROSE 50 ML IV SCH (12:13)
[2017-02-28] MEDS: GuaiFENesin/D-METHORPHAN [SUGAR-FREE] 200-20MG/10 ML SYRUP UDCUP PO PRN ×2 (12:13→18:12)
[2017-02-28] MEDS: AZITHROMYCIN 500 MG/NS 250 ML IV SCH (12:13)
[2017-02-28 15:32] VITALS: BP 148/69
[2017-02-28 19:35] VITALS: BP 131/69
[2017-02-28 23:59] LABS: GLUCOSE,POINT OF CARE 129 MG/DL (70-110)
[2017-02-28 23:59] LABS: GLUCOSE,POINT OF CARE 113 MG/DL (70-110)
[2017-03-01] VITALS (10 sets, daily range): BP systolic 92–138; BP diastolic 50–69
[2017-03-01] MEDS: GuaiFENesin/D-METHORPHAN [SUGAR-FREE] 200-20MG/10 ML SYRUP UDCUP PO PRN ×3 (00:10→21:22)
[2017-03-01] MEDS: ALBUTEROL SULFATE 2.5 MG/0.5 ML NEB SOLUTION NEB SCH ×6 (03:00→22:30)
[2017-03-01] MEDS: IPRATROPIUM BROMIDE 0.5 MG/2.5 ML NEB SOLUTION NEB SCH ×6 (03:00→22:30)
[2017-03-01 05:58] LABS: GLUCOSE,POINT OF CARE 122 MG/DL (70-110)
[2017-03-01 05:58] LABS: GLUCOSE COMMENT 1 Received Meds; GLUCOSE,POINT OF CARE 172 MG/DL (70-110)
[2017-03-01] MEDS: DEXTROSE 50%-WATER 25 GM/50 ML SYRINGE IVP PRN (06:03)
[2017-03-01 06:07] LABS: BASOPHILS % (AUTO) 0.1 % (0.0-2.0); EOSINOPHILS % (AUTO) 2.1 % (1.0-6.0); HEMATOCRIT 27.7 % (41-53); HEMOGLOBIN 9.3 g/dL (13.5-17.5); LYMPHOCYTES # (AUTO) 0.4 K/uL (1.0-4.8); LYMPHOCYTES % (AUTO) 5.7 % (22.0-44.0); MEAN CORPUSCULAR HEMOGLOBIN 28.9 pg (26.0-34.0); MEAN CORPUSCULAR HGB CONC 33.7 G/dL (31.0-37.0); MEAN CORPUSCULAR VOLUME 86 fL (80-100); MONOCYTES # (AUTO) 0.5 K/uL (0.1-1.0); MONOCYTES % (AUTO) 8.4 % (2.0-9.0); NEUTROPHILS # (AUTO) 5.1 K/uL (1.8-7.7); NEUTROPHILS % (AUTO) 83.7 % (40.0-70.0); PLATELET COUNT (AUTO) 248 K/uL (150-450); RED BLOOD CELL COUNT(AUTO) 3.24 MIL/uL (4.50-5.90); RED CELL DISTRIBUTION WIDTH 14.4 % (11.5-14.5); WHITE BLOOD COUNT (AUTO) 6.1 K/uL (4.5-11.0)
[2017-03-01 06:25] LABS: ALBUMIN 2.3 g/dL (3.4-5.0); BILIRUBIN,TOTAL 0.2 mg/dL (0.1-1.0); CALCIUM, TOTAL 8.2 mg/dL (8.8-10.5); CREATININE 3.65 mg/dL (0.60-1.30); POTASSIUM 4.2 mmol/L (3.5-5.1); TOTAL PROTEIN, SERUM 6.3 g/dL (6.4-8.2)
[2017-03-01] MEDS: GlipiZIDE 5 MG TABLET PO SCH ×2 (06:25→17:30)
[2017-03-01 07:01] LABS: MAGNESIUM 2.6 mg/dL (1.80-2.40); PHOSPHORUS 4.4 mg/dL (2.5-4.9)
[2017-03-01] MEDS ORDERED: EPOETIN ALFA 10,000 UNITS/ML VIAL SQ SCH (09:00)
[2017-03-01] MEDS: METOPROLOL SUCCINATE 25 MG ER TABLET PO SCH (09:00)
[2017-03-01] MEDS: FUROSEMIDE 40 MG/4 ML VIAL IVP SCH (09:41)
[2017-03-01] MEDS: PANTOPRAZOLE SODIUM 40 MG/VIAL IVP SCH (09:42)
[2017-03-01] MEDS: ASPIRIN 81 MG CHEWABLE TABLET PO SCH (09:43)
[2017-03-01] MEDS: HydrALAZINE HCL 25 MG TABLET PO SCH ×2 (09:43→20:27)
[2017-03-01] MEDS: TICAGRELOR 90 MG TABLET PO SCH (09:44)
[2017-03-01] MEDS: CARVEDILOL 12.5 MG TABLET PO SCH ×2 (09:44→20:27)
[2017-03-01] MEDS: ATORVASTATIN CALCIUM 40 MG TABLET PO SCH (09:44)
[2017-03-01] MEDS: DOCUSATE SODIUM 100 MG CAPSULE PO SCH ×2 (09:44→20:27)
[2017-03-01] MEDS ORDERED: BUMETANIDE 0.25 MG/ML 10 ML VIAL IVP PRN (09:45)
[2017-03-01] MEDS: MULTIVITAMINS WITH MINERALS, THERAPEUTIC TABLET PO SCH (09:45)
[2017-03-01] MEDS: BENZONATATE 100 MG CAPSULE PO SCH ×3 (09:45→20:27)
[2017-03-01] MEDS: HYDROCODONE/ACETAMINOPHEN 5-325 MG TABLET PO PRN (09:46)
[2017-03-01] MEDS: HEPARIN SODIUM,PORCINE 5,000 UNITS/ML VIAL SQ SCH ×2 (09:46→20:27)
[2017-03-01] MEDS ORDERED: SODIUM CHLORIDE 0.9% 100 ML ONE (10:29)
[2017-03-01] MEDS ORDERED: BUMETANIDE 0.25 MG/ML 4 ML VIAL IVP PRN (10:30)
[2017-03-01] MEDS: CefTRIAXone 1 GM/DEXTROSE 50 ML IV SCH (10:58)
[2017-03-01] MEDS ORDERED: MORPHINE SULFATE 2 MG/ML SYRINGE IVP ONE (12:15)
[2017-03-01] MEDS: AZITHROMYCIN 500 MG/NS 250 ML IV SCH (12:29)
[2017-03-01 12:39] LABS: ABG A-A DIFF O2 80.1 mmHg (10-20.0); ABG BASE EXCESS 2.6 mmol/L (-2.0-3.0); ABG HCO3 26.4 mmol/L (22.0-26.0); ABG OXYHEMOGLOBIN 95.8 % (94.0-100.0); ABG PCO2 47 mmHg (35-45); ABG PH 7.391 (7.35-7.450); TEMPERATURE, FAHRENHEIT, BG 97.6 FAHREN (96.0-98.6)
[2017-03-01 12:40] LABS: ALLEN TEST, BLOOD GAS Positive
[2017-03-01] MEDS: INSULIN ASPART 100 UNITS/ML SQ PRN (17:12)
[2017-03-02] MEDS: HYDROCODONE/ACETAMINOPHEN 5-325 MG TABLET PO PRN ×2 (00:10→18:20)
[2017-03-02 00:29] VITALS: BP 156/85
[2017-03-02] MEDS: METOPROLOL SUCCINATE 25 MG ER TABLET PO SCH ×2 (00:47→09:00)
[2017-03-02] MEDS: ALBUTEROL SULFATE 2.5 MG/0.5 ML NEB SOLUTION NEB SCH ×4 (03:01→14:38)
[2017-03-02] MEDS: IPRATROPIUM BROMIDE 0.5 MG/2.5 ML NEB SOLUTION NEB SCH ×4 (03:01→14:38)
[2017-03-02 03:52] LABS: GLUCOSE COMMENT 1 Received Meds; GLUCOSE,POINT OF CARE 153 MG/DL (70-110)
[2017-03-02 03:52] LABS: GLUCOSE,POINT OF CARE 147 MG/DL (70-110)
[2017-03-02 03:52] LABS: GLUCOSE COMMENT 1 Juice/Food/D50 Given; GLUCOSE COMMENT 2 Doctor Notified; GLUCOSE,POINT OF CARE 43 MG/DL (70-110)
[2017-03-02 03:52] LABS: GLUCOSE,POINT OF CARE 130 MG/DL (70-110)
[2017-03-02 04:59] VITALS: BP 148/71
[2017-03-02] MEDS: GlipiZIDE 5 MG TABLET PO SCH ×2 (06:30→17:30)
[2017-03-02 07:31] LABS: BASOPHILS % (AUTO) 0.8 % (0.0-2.0); HEMATOCRIT 28.3 % (41-53); HEMOGLOBIN 9.5 g/dL (13.5-17.5); LYMPHOCYTES # (AUTO) 0.4 K/uL (1.0-4.8); LYMPHOCYTES % (AUTO) 7.7 % (22.0-44.0); MEAN CORPUSCULAR HEMOGLOBIN 28.9 pg (26.0-34.0); MEAN CORPUSCULAR HGB CONC 33.4 G/dL (31.0-37.0); MEAN CORPUSCULAR VOLUME 86 fL (80-100); MONOCYTES # (AUTO) 0.4 K/uL (0.1-1.0); MONOCYTES % (AUTO) 8.4 % (2.0-9.0); NEUTROPHILS # (AUTO) 3.9 K/uL (1.8-7.7); NEUTROPHILS % (AUTO) 80.1 % (40.0-70.0); PLATELET COUNT (AUTO) 258 K/uL (150-450); RED BLOOD CELL COUNT(AUTO) 3.27 MIL/uL (4.50-5.90); RED CELL DISTRIBUTION WIDTH 14.6 % (11.5-14.5); WHITE BLOOD COUNT (AUTO) 4.9 K/uL (4.5-11.0)
[2017-03-02 07:32] VITALS: BP 143/66
[2017-03-02 07:46] LABS: ALBUMIN 2.4 g/dL (3.4-5.0); BILIRUBIN,TOTAL 0.2 mg/dL (0.1-1.0); CALCIUM, TOTAL 8.2 mg/dL (8.8-10.5); CREATININE 3.69 mg/dL (0.60-1.30); POTASSIUM 4.3 mmol/L (3.5-5.1); TOTAL PROTEIN, SERUM 6.5 g/dL (6.4-8.2)
[2017-03-02] MEDS: HEPARIN SODIUM,PORCINE 5,000 UNITS/ML VIAL SQ SCH (08:29)
[2017-03-02] MEDS: BENZONATATE 100 MG CAPSULE PO SCH ×2 (08:29→16:00)
[2017-03-02] MEDS: MULTIVITAMINS WITH MINERALS, THERAPEUTIC TABLET PO SCH (08:29)
[2017-03-02] MEDS: ASPIRIN 81 MG CHEWABLE TABLET PO SCH (08:29)
[2017-03-02] MEDS: HydrALAZINE HCL 25 MG TABLET PO SCH (08:29)
[2017-03-02] MEDS: CARVEDILOL 12.5 MG TABLET PO SCH (08:29)
[2017-03-02] MEDS: DOCUSATE SODIUM 100 MG CAPSULE PO SCH (08:29)
[2017-03-02] MEDS: ATORVASTATIN CALCIUM 40 MG TABLET PO SCH (08:29)
[2017-03-02] MEDS ORDERED: OXYGEN THERAPY IH SCH (08:30)
[2017-03-02] MEDS: PANTOPRAZOLE SODIUM 40 MG/VIAL IVP SCH (08:30)
[2017-03-02] MEDS ORDERED: CLOPIDOGREL BISULFATE 75 MG TABLET PO SCH (09:00)
[2017-03-02 11:25] VITALS: BP 154/75
[2017-03-02] MEDS: INSULIN ASPART 100 UNITS/ML SQ PRN (12:05)
[2017-03-02 17:00] VITALS: BP 131/68
[2017-03-03 00:27] LABS: GLUCOSE COMMENT 1 Received Meds; GLUCOSE,POINT OF CARE 201 MG/DL (70-110)
[2017-03-03 00:27] LABS: GLUCOSE,POINT OF CARE 117 MG/DL (70-110)
[2017-03-03 00:27] LABS: GLUCOSE COMMENT 1 Received Meds; GLUCOSE,POINT OF CARE 156 MG/DL (70-110)
[2017-03-03 00:27] LABS: GLUCOSE COMMENT 1 Received Meds; GLUCOSE,POINT OF CARE 147 MG/DL (70-110)
== END 2017-03-02 18:25 | DRG 246 ==
LOC: EMS 09:32 → 5N 13:57 → 5S 02-24 17:30 → ICU 02-25 11:24 → 5S 02-27 10:30
PROVIDERS: ADMIT Hospitalist; ATTEND Hospitalist
PROC: 027035Z Dilation of Coronary Artery, One Artery with Two Drug-eluting Intraluminal Devices, Percutaneous Approach (ICD-10-PCS; principal; 2017-02-23)
PROC: 4A023N8 Measurement of Cardiac Sampling and Pressure, Bilateral, Percutaneous Approach (ICD-10-PCS; 2017-02-23)
PROC: B2111ZZ Fluoroscopy of Multiple Coronary Arteries using Low Osmolar Contrast (ICD-10-PCS; 2017-02-23)
PROC: B51B1ZA Fluoroscopy of Right Lower Extremity Veins using Low Osmolar Contrast, Guidance (ICD-10-PCS; 2017-02-23)
DX: I13.0 Hypertensive heart and chronic kidney disease with heart failure and stage 1 through stage 4 chronic kidney disease, or unspecified chronic kidney disease (principal); J96.91 Respiratory failure, unspecified with hypoxia; E43 Unspecified severe protein-calorie malnutrition; J18.9 Pneumonia, unspecified organism; E87.3 Alkalosis; E11.65 Type 2 diabetes mellitus with hyperglycemia; N17.9 Acute kidney failure, unspecified; E11.22 Type 2 diabetes mellitus with diabetic chronic kidney disease; D64.9 Anemia, unspecified; E11.9 Type 2 diabetes mellitus without complications; I50.23 Acute on chronic systolic (congestive) heart failure; I11.0 Hypertensive heart disease with heart failure; H54.61 Unqualified visual loss, right eye, normal vision left eye; I25.10 Atherosclerotic heart disease of native coronary artery without angina pectoris; I35.8 Other nonrheumatic aortic valve disorders; J61 Pneumoconiosis due to asbestos and other mineral fibers; K59.00 Constipation, unspecified; N18.3 Chronic kidney disease, stage 3 (moderate); R31.0 Gross hematuria; Z77.090 Contact with and (suspected) exposure to asbestos; Z79.4 Long term (current) use of insulin; Z87.01 Personal history of pneumonia (recurrent); Z95.5 Presence of coronary angioplasty implant and graft
CPT/HCPCS: 70450; 71250; 76770; 82570; 82805; 82962; 83540; 83550; 83605; 83735; 83883; 84100; 84132; 84145; 84155; 84156; 84165; 84166; 84300; 84540; 87040; 87086; 93005; 93306; 93460; 94640; 96365; 96366; 96368; 97116; 97161; 97530; 99285; C9113; J0456; J0696; J0885; J1644; J1940; J2250; J2270; J2405; J3010; J3490; J7030; J7040; J7050; Q9967

== ENCOUNTER 2017-03-14 21:17 | Inpatient (IN) | payer MEDICARE ==
[~2017-03-14] VITALS: Ht 182.9 cm; Wt 69.8 kg
[~2017-03-14 21:17] MED LIST: ASPI81 PO; FURO40I PO; GLIP10 PO; HYDR-4061 PO; HYDR25TA84 PO; METO25XL PO
[2017-03-14 21:42] LABS: GLUCOSE,POINT OF CARE 359 MG/DL (70-110)
[2017-03-14 21:49] LABS: BASOPHILS # (AUTO) 0.01 K/uL (0.00-0.20); BASOPHILS % (AUTO) 0.1 % (0.0-2.0); EOSINOPHILS # (AUTO) 0.16 K/uL (0.00-0.70); EOSINOPHILS % (AUTO) 2.57 % (1.0-6.0); HEMATOCRIT 31.9 % (41-53); HEMOGLOBIN 10.3 g/dL (13.5-17.5); LYMPHOCYTES # (AUTO) 0.5 K/uL (1.0-4.8); MEAN CORPUSCULAR HGB CONC 32.3 G/dL (31.0-37.0); MEAN CORPUSCULAR VOLUME 90 fL (80-100); MONOCYTES # (AUTO) 0.5 K/uL (0.1-1.0); MONOCYTES % (AUTO) 8.2 % (2.0-9.0); NEUTROPHILS # (AUTO) 5.3 K/uL (1.8-7.7); NEUTROPHILS % (AUTO) 82.1 % (40.0-70.0); PLATELET COUNT (AUTO) 250 K/uL (150-450); RED BLOOD CELL COUNT(AUTO) 3.56 MIL/uL (4.50-5.90); WHITE BLOOD COUNT (AUTO) 6.4 K/uL (4.5-11.0)
[2017-03-14 21:58] LABS: ANION GAP 6 mmol/L (8-16); CALCIUM, TOTAL 8.6 mg/dL (8.8-10.5); CARBON DIOXIDE 33 mmol/L (22-29); CHLORIDE 101 mmol/L (98-107); CREATININE 1.68 mg/dL (0.60-1.30); GLOMERULAR FILTR. RATE CALC 41 mL/min (>60); POTASSIUM 3.9 mmol/L (3.5-5.1); SODIUM SERUM 140 mmol/L (136-145); UREA NITROGEN, BLOOD 24 mg/dL (7-18)
[2017-03-14 22:00] LABS: PROTHROMBIN TIME 10.8 SEC (9.4-11.6)
[2017-03-14 22:05] LABS: ALANINE AMINOTRANSFERASE 25 U/L (12-78); ALBUMIN 2.9 g/dL (3.4-5.0); ASPARTATE AMINOTRANSFERASE 26 U/L (15-37); BILIRUBIN,TOTAL 0.4 mg/dL (0.1-1.0); CREATINE KINASE, TOTAL 71 U/L (39-308); TOTAL PROTEIN, SERUM 7.9 g/dL (6.4-8.2)
[2017-03-14 22:06] LABS: LACTIC ACID 1.8 mmol/L (0.4-2.0)
[2017-03-14 22:13] LABS: B-TYPE NATRIURETIC PEPTIDE 2700 pg/mL (0-100)
[2017-03-14] MEDS ORDERED: PIPERACILLIN/TAZO 3.375 GM/D5W 50 ML IV ONE (22:30)
[2017-03-14] MEDS ORDERED: MethylPREDNISolone SOD SUCC 125 MG/2 ML VIAL IVP ONE (22:30)
[2017-03-14] MEDS ORDERED: IPRATROPIUM BROMIDE 0.5 MG/2.5 ML NEB SOLUTION NEB ONE (22:30)
[2017-03-14] MEDS ORDERED: ALBUTEROL SULFATE 2.5 MG/0.5 ML NEB SOLUTION NEB ONE (22:30)
[2017-03-14] MEDS ORDERED: ASPIRIN 325 MG TABLET PO ONE (22:45)
[2017-03-14] MEDS ORDERED: FUROSEMIDE 40 MG/4 ML VIAL IVP ONE (23:00)
[2017-03-14 23:13] LABS: INFLUENZA TYPE B NEGATIVE FOR TYPE B (NEGATIVE)
[2017-03-14] MEDS ORDERED: ONDANSETRON HCL 4 MG/2 ML VIAL IVP PRN (23:30)
[2017-03-14] MEDS ORDERED: ACETAMINOPHEN 325 MG TABLET PO PRN (23:30)
[2017-03-14] MEDS ORDERED: 0.9% SODIUM CHLORIDE 10 ML SYRINGE IVP PRN (23:30)
[2017-03-15] MEDS ORDERED: HYDROCODONE/ACETAMINOPHEN 5-325 MG TABLET PO PRN ×2 (00:15→00:45)
[2017-03-15] MEDS ORDERED: MORPHINE SULFATE 2 MG/ML SYRINGE IVP PRN (00:30)
[2017-03-15] MEDS ORDERED: DEXTROSE 50%-WATER 25 GM/50 ML SYRINGE IVP PRN (00:30)
[2017-03-15] MEDS ORDERED: NITROGLYCERIN 0.4 MG SUBLINGUAL TABLET #25 SL PRN (00:30)
[2017-03-15 00:33] LABS: APPEARANCE,URINE CLEAR (CLEAR); GLUCOSE, URINE (UA) >=1000 mg/dL (NEGATIVE); KETONES,URINE NEGATIVE (NEGATIVE); LEUKOCYTE ESTERASE ,URINE NEGATIVE (NEGATIVE); OCCULT BLOOD,URINE NEGATIVE (NEGATIVE); PROTEIN,URINE POS 1+ (NEGATIVE)
[2017-03-15 00:34] LABS: ADD UA MICROSCOPIC YES
[2017-03-15 00:39] LABS: RBC,URINE 0-2 /HPF (0-2); SQUAMOUS EPITHELIAL CELL,UR Few /LPF (None Seen); WBC,URINE 0-2 /HPF (0-5)
[2017-03-15 00:55] LABS: HEMOGLOBIN A1C 8.8 % (4.5-6.2)
[2017-03-15] MEDS ORDERED: ISOSORBIDE MONONITRATE 20 MG TABLET PO SCH (01:00)
[2017-03-15 01:02] LABS: THYROID STIMULATING HORMONE 6.88 uIU/mL (0.36-3.74)
[2017-03-15 01:39] LABS: ERYTHROCYTE SEDIMENTATION RATE 86 MM/HR (0-15)
[2017-03-15 02:03] VITALS: BP 149/83
[2017-03-15] MEDS: ISOSORBIDE MONONITRATE 20 MG TABLET PO SCH ×2 (02:20→11:51)
[2017-03-15 03:31] VITALS: BP 164/95
[2017-03-15] MEDS: INSULIN ASPART 100 UNITS/ML SQ PRN ×4 (07:01→21:21)
[2017-03-15 07:12] VITALS: BP 153/80
[2017-03-15] MEDS: HydrALAZINE HCL 25 MG TABLET PO SCH ×2 (07:54→20:18)
[2017-03-15] MEDS: FUROSEMIDE 40 MG/4 ML VIAL IVP SCH ×2 (07:54→20:18)
[2017-03-15] MEDS: METOPROLOL SUCCINATE 25 MG ER TABLET PO SCH ×2 (07:55→20:18)
[2017-03-15] MEDS: ASPIRIN 81 MG CHEWABLE TABLET PO SCH (07:55)
[2017-03-15] MEDS ORDERED: SPIRONOLACTONE 25 MG TABLET PO SCH (09:00)
[2017-03-15 11:04] VITALS: BP 149/81
[2017-03-15] MEDS: CLOPIDOGREL BISULFATE 75 MG TABLET PO SCH (11:51)
[2017-03-15 14:52] LABS: GLUCOSE COMMENT 1 Received Meds; GLUCOSE,POINT OF CARE 309 MG/DL (70-110)
[2017-03-15 14:52] LABS: GLUCOSE COMMENT 1 Received Meds; GLUCOSE,POINT OF CARE 309 MG/DL (70-110)
[2017-03-15 16:16] VITALS: BP 150/73
[2017-03-15 20:13] VITALS: BP 150/77
[2017-03-15] MEDS: INSULIN DETEMIR 100 UNITS/ML SQ SCH (21:21)
[2017-03-16 00:33] VITALS: BP 126/61
[2017-03-16 04:16] VITALS: BP 132/70
[2017-03-16 06:02] LABS: EOSINOPHILS % (AUTO) 0 % (1.0-6.0); HEMATOCRIT 29.6 % (41-53); HEMOGLOBIN 9.6 g/dL (13.5-17.5); LYMPHOCYTES # (AUTO) 0.4 K/uL (1.0-4.8); LYMPHOCYTES % (AUTO) 4.6 % (22.0-44.0); MEAN CORPUSCULAR HEMOGLOBIN 29.8 pg (26.0-34.0); MEAN CORPUSCULAR HGB CONC 32.6 G/dL (31.0-37.0); MEAN CORPUSCULAR VOLUME 92 fL (80-100); MONOCYTES # (AUTO) 0.7 K/uL (0.1-1.0); NEUTROPHILS # (AUTO) 6.9 K/uL (1.8-7.7); PLATELET COUNT (AUTO) 253 K/uL (150-450); RED BLOOD CELL COUNT(AUTO) 3.23 MIL/uL (4.50-5.90); RED CELL DISTRIBUTION WIDTH 17.4 % (11.5-14.5)
[2017-03-16] MEDS: INSULIN ASPART 100 UNITS/ML SQ PRN ×3 (06:14→18:03)
[2017-03-16 06:40] LABS: ALBUMIN 2.4 g/dL (3.4-5.0); BILIRUBIN,TOTAL 0.2 mg/dL (0.1-1.0); CALCIUM, TOTAL 8.7 mg/dL (8.8-10.5); CREATININE 1.96 mg/dL (0.60-1.30); TOTAL PROTEIN, SERUM 6.7 g/dL (6.4-8.2)
[2017-03-16 06:58] LABS: NEUTROPHILS % (AUTO) 86.4 % (40.0-70.0)
[2017-03-16 08:23] VITALS: BP 128/61
[2017-03-16] MEDS: ISOSORBIDE MONONITRATE 20 MG TABLET PO SCH (08:29)
[2017-03-16] MEDS: HydrALAZINE HCL 25 MG TABLET PO SCH ×2 (08:29→21:15)
[2017-03-16] MEDS: FUROSEMIDE 40 MG/4 ML VIAL IVP SCH ×2 (08:30→21:16)
[2017-03-16] MEDS: CLOPIDOGREL BISULFATE 75 MG TABLET PO SCH (08:30)
[2017-03-16] MEDS: ASPIRIN 81 MG CHEWABLE TABLET PO SCH (08:30)
[2017-03-16] MEDS: METOPROLOL SUCCINATE 25 MG ER TABLET PO SCH ×2 (08:30→21:16)
[2017-03-16 09:09] LABS: RBC MORPHOLOGY COMMENT ABNORMAL RBC MORPH
[2017-03-16 11:09] VITALS: BP 133/69
[2017-03-16] MEDS: LISINOPRIL 5 MG TABLET PO SCH (11:40)
[2017-03-16 15:24] VITALS: BP 139/75
[2017-03-16 20:39] VITALS: BP 121/65
[2017-03-16] MEDS: INSULIN DETEMIR 100 UNITS/ML SQ SCH (21:25)
[2017-03-17 00:32] VITALS: BP 128/68
[2017-03-17 05:46] VITALS: BP 137/71
[2017-03-17 06:24] LABS: BASOPHILS # (AUTO) 0.01 K/uL (0.00-0.20); BASOPHILS % (AUTO) 0.1 % (0.0-2.0); EOSINOPHILS # (AUTO) 0.12 K/uL (0.00-0.70); EOSINOPHILS % (AUTO) 1.48 % (1.0-6.0); HEMATOCRIT 33.7 % (41-53); HEMOGLOBIN 10.6 g/dL (13.5-17.5); LYMPHOCYTES # (AUTO) 0.7 K/uL (1.0-4.8); LYMPHOCYTES % (AUTO) 8.7 % (22.0-44.0); MEAN CORPUSCULAR HEMOGLOBIN 29.2 pg (26.0-34.0); MEAN CORPUSCULAR HGB CONC 31.4 G/dL (31.0-37.0); MEAN CORPUSCULAR VOLUME 93 fL (80-100); MONOCYTES # (AUTO) 0.7 K/uL (0.1-1.0); MONOCYTES % (AUTO) 8.8 % (2.0-9.0); NEUTROPHILS # (AUTO) 6.6 K/uL (1.8-7.7); NEUTROPHILS % (AUTO) 80.9 % (40.0-70.0); PLATELET COUNT (AUTO) 318 K/uL (150-450); RED BLOOD CELL COUNT(AUTO) 3.63 MIL/uL (4.50-5.90); RED CELL DISTRIBUTION WIDTH 17.6 % (11.5-14.5); WHITE BLOOD COUNT (AUTO) 8.1 K/uL (4.5-11.0)
[2017-03-17 07:07] LABS: ALBUMIN 2.7 g/dL (3.4-5.0); BILIRUBIN,TOTAL 0.3 mg/dL (0.1-1.0); CALCIUM, TOTAL 8.9 mg/dL (8.8-10.5); CREATININE 1.96 mg/dL (0.60-1.30); MAGNESIUM 1.9 mg/dL (1.80-2.40); POTASSIUM 3.8 mmol/L (3.5-5.1); TOTAL PROTEIN, SERUM 7.4 g/dL (6.4-8.2)
[2017-03-17 08:37] VITALS: BP 135/59
[2017-03-17] MEDS: FUROSEMIDE 40 MG/4 ML VIAL IVP SCH (09:24)
[2017-03-17] MEDS: ISOSORBIDE MONONITRATE 20 MG TABLET PO SCH (09:24)
[2017-03-17] MEDS: METOPROLOL SUCCINATE 25 MG ER TABLET PO SCH (09:25)
[2017-03-17] MEDS: LISINOPRIL 5 MG TABLET PO SCH (09:25)
[2017-03-17] MEDS: CLOPIDOGREL BISULFATE 75 MG TABLET PO SCH (09:25)
[2017-03-17] MEDS: ASPIRIN 81 MG CHEWABLE TABLET PO SCH (09:26)
[2017-03-17] MEDS: HydrALAZINE HCL 25 MG TABLET PO SCH (09:26)
[2017-03-17 09:34] LABS: RBC MORPHOLOGY COMMENT ABNORMAL RBC MORPH
[2017-03-17] MEDS: INSULIN ASPART 100 UNITS/ML SQ PRN (11:57)
[2017-03-17 12:25] VITALS: BP 122/71
[2017-03-17] MEDS ORDERED: CLOP75 PO (13:31)
[2017-03-17] MEDS ORDERED: ISOS20TA85 PO (13:31)
[2017-03-17] MEDS ORDERED: LISI-622 PO (13:31)
[2017-03-17 13:52] LABS: GLUCOSE COMMENT 1 Doctor Notified; GLUCOSE,POINT OF CARE 406 MG/DL (70-110)
[2017-03-17 13:52] LABS: GLUCOSE COMMENT 1 Doctor Notified; GLUCOSE COMMENT 2 Received Meds; GLUCOSE,POINT OF CARE 486 MG/DL (70-110)
[2017-03-17 13:53] LABS: GLUCOSE,POINT OF CARE 167 MG/DL (70-110)
[2017-03-17 13:53] LABS: GLUCOSE,POINT OF CARE 119 MG/DL (70-110)
[2017-03-17 13:53] LABS: GLUCOSE COMMENT 1 Received Meds; GLUCOSE,POINT OF CARE 194 MG/DL (70-110)
[2017-03-17 13:53] LABS: GLUCOSE,POINT OF CARE 192 MG/DL (70-110)
[2017-03-17 13:54] LABS: GLUCOSE,POINT OF CARE 175 MG/DL (70-110)
[2017-03-17 13:54] LABS: GLUCOSE COMMENT 1 Juice/Food/D50 Given; GLUCOSE,POINT OF CARE 34 MG/DL (70-110)
[2017-03-17 16:26] VITALS: BP 132/63
[2017-03-18] MEDS ORDERED: LISINOPRIL 5 MG TABLET PO SCH ×2 (09:00)
[2017-03-20 19:34] LABS: GLUCOSE COMMENT 1 Received Meds; GLUCOSE,POINT OF CARE 156 MG/DL (70-110)
[2017-03-20 19:34] LABS: GLUCOSE COMMENT 1 Received Meds; GLUCOSE,POINT OF CARE 226 MG/DL (70-110)
== END 2017-03-17 17:50 | disposition home or self-care (01) | DRG 291 ==
LOC: EMS 21:18 → UNDOADMIN 03-15 00:28 → 5S 03-15 00:28
PROVIDERS: ADMIT Hospitalist; ATTEND Hospitalist
DX: I13.0 Hypertensive heart and chronic kidney disease with heart failure and stage 1 through stage 4 chronic kidney disease, or unspecified chronic kidney disease (principal); I50.23 Acute on chronic systolic (congestive) heart failure; N17.9 Acute kidney failure, unspecified; E11.22 Type 2 diabetes mellitus with diabetic chronic kidney disease; D64.9 Anemia, unspecified; J44.1 Chronic obstructive pulmonary disease with (acute) exacerbation; N18.2 Chronic kidney disease, stage 2 (mild); E78.5 Hyperlipidemia, unspecified; H54.61 Unqualified visual loss, right eye, normal vision left eye; I25.5 Ischemic cardiomyopathy; J61 Pneumoconiosis due to asbestos and other mineral fibers; I25.2 Old myocardial infarction; Z95.5 Presence of coronary angioplasty implant and graft; Z79.84 Long term (current) use of oral hypoglycemic drugs; Z79.82 Long term (current) use of aspirin; Z79.899 Other long term (current) drug therapy
CPT/HCPCS: 82962; 83036; 83605; 83735; 84443; 85651; 86140; 87040; 87081; 87804; 93005; 93306; 94640; 96365; 96375; 99291; J1940; J2543; J2930